=== PATIENT | male | born 1985 | race Two or more races ===

== ENCOUNTER 2018-02-20 12:44 | Emergency (ER) | payer OTHER ==
[~2018-02-20] VITALS: Ht 180.3 cm; Wt 54.4 kg
[2018-02-20 13:20] VITALS: BP 123/70
[2018-02-20] MEDS ORDERED: BACITRACIN-POLYMYXIN B TOPICAL OINT UD TOP ONE ×2 (14:13→14:30)
[2018-02-20] MEDS ORDERED: SODIUM CHLORIDE 0.9% 1,000 ML IV ONE (14:15)
[2018-02-20] MEDS ORDERED: TETANUS-DIPTH-ACEL PERTUSSIS 0.5ML SYRG IM ONE (14:30)
== END 2018-02-20 15:20 | disposition home or self-care (01) ==
LOC: ER 12:44
DX: S61.212A Laceration without foreign body of right middle finger without damage to nail, initial encounter (principal); S61.214A Laceration without foreign body of right ring finger without damage to nail, initial encounter; X58.XXXA Exposure to other specified factors, initial encounter; Y93.89 Activity, other specified; Y92.89 Other specified places as the place of occurrence of the external cause; Y99.8 Other external cause status
CPT/HCPCS: 36415; 80320; 90471; 90715; 94761

== ENCOUNTER 2018-10-19 17:30 | Emergency (ER) | payer OTHER ==
[~2018-10-19] VITALS: Ht 180.3 cm; Wt 86.2 kg
[2018-10-19 18:33] VITALS: BP 143/100
[2018-10-19] MEDS ORDERED: ACETAMINOPHEN 500 MG TAB PO ONE (19:15)
== END 2018-10-19 20:07 | disposition home or self-care (01) ==
LOC: EDBD 17:30 → ER 17:30
DX: S00.03XA Contusion of scalp, initial encounter (principal); S50.811A Abrasion of right forearm, initial encounter; S20.311A Abrasion of right front wall of thorax, initial encounter; S60.512A Abrasion of left hand, initial encounter; Y07.410 Brother, perpetrator of maltreatment and neglect; Y93.89 Activity, other specified; Y99.8 Other external cause status; Y92.89 Other specified places as the place of occurrence of the external cause
CPT/HCPCS: 70450

== ENCOUNTER 2022-11-04 14:17 | Emergency (ER) | payer MEDICAID ==
[~2022-11-04] VITALS: Ht 180.3 cm; Wt 82.0 kg
[2022-11-04] MEDS ORDERED: PANTOPRAZOLE 40 MG/10 ML VIAL INJ IV ONE (14:45)
[2022-11-04] MEDS ORDERED: SODIUM CHLORIDE 0.9% 1,000 ML IVB ONE (14:45)
[2022-11-04 15:31] LABS: Basophils # (auto) 0.1 10 ^3/uL (0-0.2); Eosinophils # (auto) 0 10 ^3/uL (0-0.8); Lymphocytes # (auto) 0.8 10 ^3/uL (0.4-5.4); Lymphocytes % (auto) 7.5 % (10.0-50.0); Mean Corpuscular Hgb Conc. 34.4 g/dL (32.0-36.0); Neutrophils # (auto) 9.3 10 ^3/uL (1.6-8.6)
[2022-11-04 15:33] LABS: Basophils % (auto) 1.3 % (0.0-2.0); Eosinophils % (auto) 0.1 % (0.0-7.0); Hematocrit 50.3 % (41.0-53.0); Hemoglobin 17.3 g/dL (13.5-17.5); Mean Corpuscular Hemoglobin 34.6 pg (28.0-32.0); Mean Corpuscular Volume 100.4 fL (80.0-100.0); Monocytes % (auto) 8.5 % (0.0-12.0); Neutrophils % (auto) 82.6 % (37.0-80.0); Nucleated Red Blood Cells % 0.1 %; Red Blood Cells 5.01 10^6/uL (4.5-5.90); Red Cell Distribution Width 12.4 % (11.8-14.3); White Blood Cell 11.2 10^3/uL (4.4-10.8)
[2022-11-04 15:43] LABS: Albumin 4.5 g/dL (3.4-5.0); Calcium 9.1 mg/dL (8.5-10.1); Potassium 3.8 mmol/L (3.5-5.1)
[2022-11-04 15:46] LABS: BUN/Creatinine Ratio 7.7; Bilirubin, Total 0.8 mg/dL (0.2-1.0); Total Protein 8.9 g/dL (6.4-8.2)
[2022-11-04 15:53] LABS: Partial Thromboplastin Time 25.1 sec (24.6-33.4)
[2022-11-04 16:00] LABS: Amphetamine Screen, Urine NEGATIVE (NEGATIVE); Barbiturate Scree,Urine NEGATIVE (NEGATIVE); Benzodiazephine Screen, Urine NEGATIVE (NEGATIVE); Cannabinoid Screen, Urine NEGATIVE (NEGATIVE); Cocaine Screen, Urine NEGATIVE (NEGATIVE); Opiate Scree,Urine NEGATIVE (NEGATIVE); Phencyclidine Screen, Urine NEGATIVE (NEGATIVE)
[2022-11-04] MEDS ORDERED: LORazepam 2MG/ML-1ML VIAL IV ONE (16:00)
[2022-11-04] MEDS ORDERED: PANT40TA2 PO ×3 (16:11→16:52)
[2022-11-04] MEDS ORDERED: LORA0.5T20 PO ×3 (16:11→16:52)
[2022-11-04] MEDS ORDERED: ONDA-144 PO ×3 (16:11→16:52)
[2022-11-04 17:21] VITALS: BP 154/90
== END 2022-11-04 17:24 | disposition home or self-care (01) ==
LOC: ER 14:17
DX: K29.70 Gastritis, unspecified, without bleeding (principal); F10.139 Alcohol abuse with withdrawal, unspecified; D72.829 Elevated white blood cell count, unspecified; F12.10 Cannabis abuse, uncomplicated; Z88.6 Allergy status to analgesic agent; Z79.899 Other long term (current) drug therapy; Y90.8 Blood alcohol level of 240 mg/100 ml or more
CPT/HCPCS: 36415; 74176; 80053; 80307; 80320; 83690; 85025; 85610; 85730; 96374; 96375; 99285; C9113; J2060; J7030

== ENCOUNTER 2023-08-22 17:47 | Emergency (ER) | payer MEDICAID ==
[~2023-08-22] VITALS: Ht 177.8 cm; Wt 86.4 kg
[~2023-08-22 17:47] MED LIST: LORA-1121 PO; ONDA-144 PO; PANT40TA2 PO
[2023-08-22 18:20] LABS: Eosinophils # (auto) 0.1 10 ^3/uL (0-0.8); Hemoglobin 16.4 g/dL (13.5-17.5); Monocytes # (auto) 0.6 10 ^3/uL (0-1.3); Neutrophils % (auto) 60.4 % (37.0-80.0); Red Cell Distribution Width 12.6 % (11.8-14.3)
[2023-08-22 18:21] LABS: Basophils # (auto) 0.2 10 ^3/uL (0-0.2); Basophils % (auto) 3.1 % (0.0-2.0); Eosinophils % (auto) 1.2 % (0.0-7.0); Hematocrit 48.1 % (41.0-53.0); Lymphocytes # (auto) 1.1 10 ^3/uL (0.4-5.4); Lymphocytes % (auto) 22.7 % (10.0-50.0); Mean Corpuscular Hemoglobin 34.9 pg (28.0-32.0); Mean Corpuscular Hgb Conc. 34.1 g/dL (32.0-36.0); Mean Corpuscular Volume 102.3 fL (80.0-100.0); Monocytes % (auto) 12.6 % (0.0-12.0); Nucleated Red Blood Cells % 0.2 %; White Blood Cell 4.9 10^3/uL (4.4-10.8)
[2023-08-22 18:38] LABS: Alanine Aminotransferase 169 U/L (7-40); Alkaline Phosphatase 72 U/L (46-116); Anion Gap 14 (5-15); Aspartate Aminotransferase 242 U/L (13-40); BUN/Creatinine Ratio 6.8 (10.0-20.0); Blood Urea Nitrogen 6 mg/dL (9-23); Calcium 9.3 mg/dL (8.5-10.1); Carbon Dioxide 24 mmol/L (20-30); Chloride 103 mmol/L (98-107); Glucose 114 mg/dL (74-106); Potassium 4.3 mmol/L (3.5-5.1); Sodium 141 mmol/L (136-145)
[2023-08-22 18:39] LABS: Bilirubin, Total 0.5 mg/dL (0.2-1.0); Total Protein 8.1 g/dL (5.7-8.2)
[2023-08-22 18:51] LABS: Blood Alcohol 477.4 mg/dL (<10)
[2023-08-22 20:00] VITALS: BP 125/70; PULSE 99; RESP 20; TEMP 98.2; O2SAT 95
== END 2023-08-22 20:05 | disposition home or self-care (01) ==
LOC: ER 17:47 → EDBD 17:47 → EDUNIT# 17:47 → ER 20:05
DX: F10.129 Alcohol abuse with intoxication, unspecified (principal); M54.50 Low back pain, unspecified; Z79.899 Other long term (current) drug therapy; Y90.8 Blood alcohol level of 240 mg/100 ml or more
CPT/HCPCS: 36415; 80053; 80320; 85025

== ENCOUNTER 2023-09-13 11:27 | Emergency (ER) | payer MEDICAID, OTHER ==
[~2023-09-13] VITALS: Ht 180.3 cm; Wt 95.0 kg
[2023-09-13] MEDS ORDERED: IOHEXOL 300 MG/ML 100ML BOTTLE IJ ONE ×2 (12:30→13:48)
[2023-09-13 16:31] LABS: Basophils # (auto) 0.1 10 ^3/uL (0-0.2); Basophils % (auto) 0.7 % (0.0-2.0); Eosinophils # (auto) 0 10 ^3/uL (0-0.8); Hematocrit 40.2 % (41.0-53.0); Hemoglobin 13.6 g/dL (13.5-17.5); Lymphocytes # (auto) 0.8 10 ^3/uL (0.4-5.4); Lymphocytes % (auto) 6.8 % (10.0-50.0); Mean Corpuscular Hemoglobin 34.1 pg (28.0-32.0); Mean Corpuscular Hgb Conc. 33.8 g/dL (32.0-36.0); Mean Corpuscular Volume 100.9 fL (80.0-100.0); Monocytes # (auto) 0.9 10 ^3/uL (0-1.3); Neutrophils # (auto) 9.4 10 ^3/uL (1.6-8.6); Neutrophils % (auto) 84.5 % (37.0-80.0); Red Blood Cells 3.99 10^6/uL (4.5-5.90); Red Cell Distribution Width 12.3 % (11.8-14.3); White Blood Cell 11.2 10^3/uL (4.4-10.8)
[2023-09-13 16:47] LABS: INR 1.04 (0.9-1.15); Partial Thromboplastin Time 25.4 SEC (24.5-34.5); Prothrombin Time 10.9 sec (9.3-11.8)
[2023-09-13 16:56] LABS: Alanine Aminotransferase 194 U/L (7-40); Albumin 4.8 g/dL (3.2-4.8); Alkaline Phosphatase 63 U/L (46-116); Anion Gap 8 (5-15); Aspartate Aminotransferase 201 U/L (13-40); BUN/Creatinine Ratio 12.9 (10.0-20.0); Blood Urea Nitrogen 9 mg/dL (9-23); Calcium 9.1 mg/dL (8.7-10.4); Carbon Dioxide 27 mmol/L (20-30); Chloride 100 mmol/L (98-107); Glucose 134 mg/dL (74-106); Sodium 135 mmol/L (136-145)
[2023-09-13 16:57] LABS: Bilirubin, Total 1.6 mg/dL (0.2-1.0); Total Protein 7.7 g/dL (5.7-8.2)
[2023-09-13] MEDS ORDERED: MORPHINE SULFATE 4 MG/ML SYR/VIAL IV ONE (18:00)
[2023-09-13] MEDS ORDERED: ONDANSETRON HCL 4 MG/2 ML VIAL IV ONE (18:00)
[2023-09-13] MEDS ORDERED: SODIUM CHLORIDE 0.9% 1,000 ML IV ONE (18:15)
[2023-09-13 18:25] LABS: Lipase 75 U/L (12-53)
[2023-09-13 18:27] LABS: Amylase 67 U/L (30-118)
[2023-09-13] MEDS ORDERED: THIAMINE 100mg/ml INJ (200mg/2ml VIAL) IV ONE (18:30)
[2023-09-13 19:15] VITALS: BP 155/99; PULSE 100; RESP 20; TEMP 99.3; O2SAT 97
== END 2023-09-13 13:57 | disposition short-term general hospital (02) ==
LOC: ER 11:27
DX: S16.1XXA Strain of muscle, fascia and tendon at neck level, initial encounter (principal); S09.8XXA Other specified injuries of head, initial encounter; S89.82XA Other specified injuries of left lower leg, initial encounter; R10.9 Unspecified abdominal pain; R18.8 Other ascites; F32.9 Major depressive disorder, single episode, unspecified; F10.90 Alcohol use, unspecified, uncomplicated; F15.90 Other stimulant use, unspecified, uncomplicated; Z79.899 Other long term (current) drug therapy; V89.2XXA Person injured in unspecified motor-vehicle accident, traffic, initial encounter; Y93.89 Activity, other specified; Y92.89 Other specified places as the place of occurrence of the external cause; Y99.8 Other external cause status; Y90.0 Blood alcohol level of less than 20 mg/100 ml
CPT/HCPCS: 36415; 70450; 71260; 72125; 73130; 73552; 74177; 80053; 82150; 83690; 85025; 85610; 85730; 96361; 96374; 96375; 99285; J2270; J2405; J3411; J7030; Q9967

== ENCOUNTER 2024-02-10 22:27 | Emergency (ER) | payer OTHER ==
[~2024-02-10] VITALS: Ht 180.3 cm; Wt 84.0 kg
[2024-02-10 23:20] VITALS: BP 130/88; PULSE 105; RESP 18; O2SAT 93
[2024-02-10 23:26] LABS: Basophils # (auto) 0.1 10 ^3/uL (0-0.2); Basophils % (auto) 2.8 % (0.0-2.0); Eosinophils # (auto) 0 10 ^3/uL (0-0.8); Lymphocytes # (auto) 0.6 10 ^3/uL (0.4-5.4); Mean Corpuscular Hemoglobin 34.7 pg (28.0-32.0); Monocytes # (auto) 0.7 10 ^3/uL (0-1.3); Nucleated Red Blood Cells % 0.1 %
[2024-02-10 23:30] LABS: Eosinophils % (auto) 0.9 % (0.0-7.0); Hematocrit 46.2 % (41.0-53.0); Mean Corpuscular Hgb Conc. 34.7 g/dL (32.0-36.0); Monocytes % (auto) 14.7 % (0.0-12.0); Neutrophils # (auto) 3.3 10 ^3/uL (1.6-8.6); Neutrophils % (auto) 69.6 % (37.0-80.0); Red Blood Cells 4.62 10^6/uL (4.5-5.90); Red Cell Distribution Width 14.5 % (11.8-14.3); White Blood Cell 4.7 10^3/uL (4.4-10.8)
[2024-02-10 23:44] LABS: Alanine Aminotransferase 200 U/L (7-40); Albumin 4.7 g/dL (3.2-4.8); Alkaline Phosphatase 78 U/L (46-116); Anion Gap 11 (5-15); Aspartate Aminotransferase 331 U/L (13-40); Blood Urea Nitrogen 7 mg/dL (9-23); Calcium 9.5 mg/dL (8.7-10.4); Carbon Dioxide 24 mmol/L (20-30); Chloride 104 mmol/L (98-107); Glucose 130 mg/dL (74-106); Lipase 95 U/L (12-53); Potassium 3.7 mmol/L (3.5-5.1); Sodium 139 mmol/L (136-145)
[2024-02-10 23:45] LABS: Total Protein 8.1 g/dL (5.7-8.2)
[2024-02-11 01:47] LABS: Blood Alcohol 454.8 mg/dL (<10)
== END 2024-02-11 01:21 | disposition left against medical advice (07) ==
LOC: ER 22:27
DX: S22.20XA Unspecified fracture of sternum, initial encounter for closed fracture (principal); S00.83XA Contusion of other part of head, initial encounter; F32.A Depression, unspecified; F12.10 Cannabis abuse, uncomplicated; Y08.89XA Assault by other specified means, initial encounter; Y93.89 Activity, other specified; Y92.89 Other specified places as the place of occurrence of the external cause; Y99.8 Other external cause status
CPT/HCPCS: 36415; 70450; 70486; 71250; 72125; 73562; 74176; 80053; 80320; 83605; 83690; 83880; 84484; 85025